=== PATIENT | male | born 1980 | race Two or more races ===

== ENCOUNTER 2023-11-21 11:17 | Emergency (ER) | payer OTHER, BC ==
[2023-11-21] MEDS: Lidocaine/Epineph/Tetracaine 3 ML Syringe TOP ONE (11:40)
[2023-11-21] MEDS: Diphtheria,Pertussis(Acell),Tetanus Vaccine 0.5 ML Syringe IM ONE (11:41)
[2023-11-21] MEDS: Bacitracin Oint 1 GM U/D Packet TOP ONE (12:55)
== END 2023-11-21 12:59 | disposition home or self-care (01) ==
LOC: MW.ED 11:17
DX: S01.311A Laceration without foreign body of right ear, initial encounter (principal); R03.0 Elevated blood-pressure reading, without diagnosis of hypertension; F17.210 Nicotine dependence, cigarettes, uncomplicated; W26.8XXA Contact with other sharp object(s), not elsewhere classified, initial encounter; Y99.0 Civilian activity done for income or pay
CPT/HCPCS: 12013; 99282; A9270

== ENCOUNTER 2023-11-26 12:14 | Emergency (ER) | payer OTHER, BC | END 2023-11-26 13:13 | disposition left against medical advice (07) | LOC: MW.ED 12:14 | DX: S01.311D Laceration without foreign body of right ear, subsequent encounter (principal); Z48.02 Encounter for removal of sutures | CPT/HCPCS: 99281 ==